=== PATIENT | female | born 1985 | race Hispanic/Latino ===

== ENCOUNTER 2022-01-31 01:35 | Day surgery (SDC) | payer OTHER ==
[2022-01-31 02:13] VITALS: BMI 45.9
[2022-01-31] MEDS ORDERED: hydrALAZINE 20 MG/ML VIAL SLOW IVP PRN (02:54)
== END 2022-01-31 04:23 | disposition home or self-care (01) ==
LOC: CSHLD/OP 01:35
PROVIDERS: ATTEND Obstetrics & Gynecology
DX: O36.8130 Decreased fetal movements, third trimester, not applicable or unspecified (principal); O24.419 Gestational diabetes mellitus in pregnancy, unspecified control; O16.3 Unspecified maternal hypertension, third trimester; Z3A.36 36 weeks gestation of pregnancy; Z79.82 Long term (current) use of aspirin; Z79.84 Long term (current) use of oral hypoglycemic drugs; Z79.899 Other long term (current) drug therapy
CPT/HCPCS: 76819; 99283

== ENCOUNTER 2022-02-01 05:30 | Inpatient (IN) | payer OTHER ==
[2022-02-08] MEDS ORDERED: Misoprostol 100 MCG TAB ONE (07:52)
[2022-02-08] MEDS ORDERED: NS w/ Oxytocin 30 units 500 ML ONE (07:52)
[2022-02-08] MEDS ORDERED: Promethazine HCl 25 MG/ML VIAL IM PRN ×2 (07:53→14:03)
[2022-02-08] MEDS ORDERED: Misoprostol 100 MCG TAB VAG SCH (07:53)
[2022-02-08] MEDS ORDERED: NS w/ Oxytocin 30 units 500 ML IV SCH ×2 (07:53)
[2022-02-08] MEDS ORDERED: Ibuprofen 800 MG TAB PO PRN (07:53)
[2022-02-08] MEDS ORDERED: Lidocaine 1% (PF) 30 ML VIAL SC PRN (07:53)
[2022-02-08] MEDS ORDERED: HYDROcodone/Acetaminophen 5/325 mg Tablet PO PRN ×2 (07:53)
[2022-02-08] MEDS ORDERED: hydrALAZINE 20 MG/ML VIAL SLOW IVP PRN (07:53)
[2022-02-08] MEDS ORDERED: Ondansetron PF 4 MG/2 ML Vial IVP PRN ×2 (07:53→14:03)
[2022-02-08 08:03] VITALS: BMI 45.2
[2022-02-08 08:09] LABS: Hemoglobin 11.4 g/dL (12.0-15.5); Mean Corpuscular HGB CONC 33.6 g/dL (32.0-36.0); Mean Corpuscular Hemoglobin 26.8 pg (27.0-33.0); Mean Corpuscular Volume 79.8 fl (81.6-98.3); Mean Platelet Volume 11.7 fl (7.4-10.4); Platelet Count 176 10x3/uL (150-450); RBC Distribution Width 15.4 % (11.5-14.5); Red Blood Cell (RBC) Count 4.25 10x6/uL (3.90-5.03); White Blood Cell (WBC) Count 7.8 10x3/uL (3.5-10.5)
[2022-02-08 08:14] LABS: ALT (SGPT) 12 U/L (8-55); AST (SGOT) 13 U/L (5-34); Alkaline Phosphatase 145 U/L (40-110); Anion Gap 12 mmol/L (10-20); BUN (Urea Nitrogen) 12 mg/dL (7.0-18.7); Bilirubin, Total 0.4 mg/dL (0.2-1.2); Calc. Creatinine Clearance 268 mL/min (70-130); Calcium 8.5 mg/dL (7.8-10.44); Carbon Dioxide 18 mmol/L (22-29); Chloride 107 mmol/L (98-107); Estimated GFR 121; Globulin 3.4 g/dL (2.4-3.5); Glucose 95 mg/dL (70-105); Potassium 3.9 mmol/L (3.5-5.1); Protein, Total 6.4 g/dL (6.0-8.3); Sodium 133 mmol/L (136-145)
[2022-02-08] MEDS: Lactated Ringer's 1,000 ML IV SCH ×2 (08:17→17:39)
[2022-02-08 08:31] LABS: Syphilis Antibody Nonreactive (Nonreactive); Syphilis Antibody Index 0.06 S/CO (<1.00 Non-Reactive)
[2022-02-08 08:33] LABS: HBSAg Index 0.19 S/CO (0-0.99); Hep B Surf Ag Non-Reactive S/CO (NonReactive)
[2022-02-08 09:17] LABS: SARS-CoV-2 NAA Rapid Test Not Detected (NotDetected)
[2022-02-08] MEDS ORDERED: Fentanyl 2 mcg/Bup 0.1% Cadd 100 ML ONE (13:32)
[2022-02-08] MEDS ORDERED: Acetaminophen 325 MG TAB PO PRN (14:03)
[2022-02-08] MEDS ORDERED: Moisturizing Cream (Eucerin) 113 GM JAR TOP PRN (14:03)
[2022-02-08] MEDS ORDERED: Naloxone HCl 0.4 mg/ml Vial IVP PRN ×2 (14:03)
[2022-02-08] MEDS ORDERED: Lactated Ringer's 500 ML IV PRN (14:03)
[2022-02-08] MEDS ORDERED: diphenhydrAMINE 50 MG/ML VIAL IVP PRN (14:03)
[2022-02-08] MEDS ORDERED: ePHEDrine Sulfate 50 MG/10 ML VIAL SLOW IVP PRN (14:03)
[2022-02-08] MEDS ORDERED: Fentanyl 2 mcg/Bupivacaine 0.1% Cassette 100 ML EPIDURAL SCH (14:15)
[2022-02-08] MEDS ORDERED: Communication Order-Pharmacy FS SCH (14:15)
[2022-02-08] MEDS ORDERED: Bupivacaine 0.25% HCL 30 ML VIAL ONE (20:06)
[2022-02-08] MEDS ORDERED: Methylergonovine 0.2 MG/ML VIAL ONE (20:45)
[2022-02-08] MEDS ORDERED: Carboprost 250 MCG/ML AMP ONE (20:45)
[2022-02-08] MEDS: Misoprostol 200 MCG TAB ONE (21:30)
[2022-02-09] MEDS ORDERED: Milk Of Magnesia 30 ML UDCUP PO PRN (00:01)
[2022-02-09] MEDS ORDERED: Ondansetron PF 4 MG/2 ML Vial IVP PRN (00:01)
[2022-02-09] MEDS ORDERED: HYDROcodone/Acetaminophen 5/325 mg Tablet PO PRN (00:01)
[2022-02-09] MEDS ORDERED: Boostrix 0.5 ML (Tdap) VIAL (>/=7 yrs of age) IM ONE (00:01)
[2022-02-09] MEDS ORDERED: Benzocaine-Menthol 82.5 ML CAN TOP PRN (00:01)
[2022-02-09] MEDS ORDERED: Bisacodyl 10 MG SUPP PR PRN (00:01)
[2022-02-09] MEDS ORDERED: Lanolin Ointment 7 GM TUBE TOP PRN (00:01)
[2022-02-09] MEDS ORDERED: diphenhydrAMINE 25 MG CAP PO PRN (00:01)
[2022-02-09] MEDS ORDERED: hydrALAZINE 20 MG/ML VIAL SLOW IVP PRN (00:01)
[2022-02-09] MEDS ORDERED: Preparation H Ointment 28 GM TUBE PR PRN (00:01)
[2022-02-09] MEDS: Lactated Ringer's 1,000 ML IV SCH (01:10)
[2022-02-09] MEDS: Ibuprofen 800 MG TAB PO SCH ×3 (05:55→21:40)
[2022-02-09] MEDS: Ferrous Sulfate 325 MG TAB PO SCH ×2 (08:11→14:50)
[2022-02-09] MEDS: Docusate 100 MG CAP PO SCH ×2 (08:11→21:41)
[2022-02-09] MEDS: Prenatal Vitamin 1 TAB PO SCH (08:11)
[2022-02-09] MEDS: HYDROcodone/Acetaminophen 5/325 mg Tablet PO PRN (13:40)
[2022-02-10] MEDS: Ibuprofen 800 MG TAB PO SCH ×2 (05:04→13:31)
[2022-02-10 08:44] VITALS: BP 118/59; TEMP 97.8
[2022-02-10] MEDS: Ferrous Sulfate 325 MG TAB PO SCH (10:30)
[2022-02-10] MEDS: Prenatal Vitamin 1 TAB PO SCH (10:31)
[2022-02-10] MEDS: Docusate 100 MG CAP PO SCH (10:31)
[2022-02-10] MEDS: HYDROcodone/Acetaminophen 5/325 mg Tablet PO PRN (12:21)
== END 2022-02-10 14:45 | disposition home or self-care (01) | DRG 806 ==
LOC: CSHLD 02-08 05:41 → CSHPP 02-09 00:01
PROVIDERS: ADMIT Obstetrics & Gynecology; ATTEND Obstetrics & Gynecology
PROC: 10E0XZZ Delivery of Products of Conception, External Approach (ICD-10-PCS; principal; 2022-02-08)
PROC: 0U7C7ZZ Dilation of Cervix, Via Natural or Artificial Opening (ICD-10-PCS; 2022-02-08)
PROC: 10907ZC Drainage of Amniotic Fluid, Therapeutic from Products of Conception, Via Natural or Artificial Opening (ICD-10-PCS; 2022-02-08)
PROC: 10H07YZ Insertion of Other Device into Products of Conception, Via Natural or Artificial Opening (ICD-10-PCS; 2022-02-08)
PROC: 3E033VJ Introduction of Other Hormone into Peripheral Vein, Percutaneous Approach (ICD-10-PCS; 2022-02-08)
DX: O24.420 Gestational diabetes mellitus in childbirth, diet controlled (principal); O10.92 Unspecified pre-existing hypertension complicating childbirth; Z37.0 Single live birth; Z3A.38 38 weeks gestation of pregnancy; Z20.822 Contact with and (suspected) exposure to COVID-19; E66.9 Obesity, unspecified; O99.214 Obesity complicating childbirth; Z79.82 Long term (current) use of aspirin; Z79.84 Long term (current) use of oral hypoglycemic drugs; O66.0 Obstructed labor due to shoulder dystocia
CPT/HCPCS: 36416; 51702; 80053; 85027; 86780; 86850; 86900; 86901; 87340; J0360; J2590; J7120; S0020; U0002

== ENCOUNTER 2022-02-13 19:53 | Emergency (ER) | payer OTHER ==
[2022-02-13 23:03] LABS: #Eosinphils 0.3 10x3/uL (0.0-0.5); #Monocytes 0.6 10x3/uL (0.0-1.1); %Basophils 0.2 % (0.0-2.0); %Eosinophils 5.3 % (0.0-6.0); %Lymphocytes 38.8 % (18.0-47.0); %Monocytes 8.6 % (0.0-10.0); %Neutrophils 46.3 % (40.0-75.0); Hemoglobin 10.6 g/dL (12.0-15.5); Mean Corpuscular HGB CONC 32.7 g/dL (32.0-36.0); Mean Corpuscular Hemoglobin 26.6 pg (27.0-33.0); Mean Corpuscular Volume 81.4 fl (81.6-98.3); Mean Platelet Volume 11.1 fl (7.4-10.4); Platelet Count 206 10x3/uL (150-450); RBC Distribution Width 15.6 % (11.5-14.5); Red Blood Cell (RBC) Count 3.98 10x6/uL (3.90-5.03); White Blood Cell (WBC) Count 6.4 10x3/uL (3.5-10.5)
[2022-02-13 23:19] LABS: ALT (SGPT) 25 U/L (8-55); AST (SGOT) 28 U/L (5-34); Albumin 3.1 g/dL (3.5-5.0); Alkaline Phosphatase 104 U/L (40-110); Anion Gap 11 mmol/L (10-20); BUN (Urea Nitrogen) 15 mg/dL (7.0-18.7); Bilirubin, Total 0.2 mg/dL (0.2-1.2); Calc. Creatinine Clearance 0 mL/min (70-130); Calcium 8.9 mg/dL (7.8-10.44); Carbon Dioxide 22 mmol/L (22-29); Chloride 110 mmol/L (98-107); Estimated GFR 120; Globulin 3.4 g/dL (2.4-3.5); Glucose 100 mg/dL (70-105); Potassium 3.7 mmol/L (3.5-5.1); Protein, Total 6.5 g/dL (6.0-8.3); Sodium 139 mmol/L (136-145)
[2022-02-13 23:20] LABS: SARS-CoV-2 NAA Rapid Test Not Detected (NotDetected)
[2022-02-14] MEDS ORDERED: Ketorolac Tromethamine 30 MG/ML VIAL ONE (00:42)
== END 2022-02-14 01:30 | disposition home or self-care (01) ==
LOC: CSHERS 19:53
DX: R07.89 Other chest pain (principal); R51.9 Headache, unspecified; I10 Essential (primary) hypertension; Z20.822 Contact with and (suspected) exposure to COVID-19
CPT/HCPCS: 71045; 80053; 83880; 84484; 85025; 93005; 96374; J1885

== ENCOUNTER 2022-04-03 19:51 | Emergency (ER) | payer OTHER | END 2022-04-03 20:55 | disposition home or self-care (01) | LOC: CSHERS 19:51 | DX: T81.31XD Disruption of external operation (surgical) wound, not elsewhere classified, subsequent encounter (principal); I10 Essential (primary) hypertension | CPT/HCPCS: 99281 ==

== ENCOUNTER → 2022-04-03 | Day surgery (SDC) | payer OTHER ==
[2022-03-29 13:49] LABS: Hemoglobin 13.2 g/dL (12.0-15.5); Mean Corpuscular HGB CONC 32.7 g/dL (32.0-36.0); Mean Corpuscular Hemoglobin 26.3 pg (27.0-33.0); Mean Corpuscular Volume 80.5 fl (81.6-98.3); Platelet Count 257 10x3/uL (150-450); RBC Distribution Width 14.2 % (11.5-14.5); Red Blood Cell (RBC) Count 5.02 10x6/uL (3.90-5.03); White Blood Cell (WBC) Count 5.8 10x3/uL (3.5-10.5)
[2022-03-29 13:59] LABS: BHCG - Serum Negative (NEGATIVE); Pregs Control Background? CLEAR/WHITE (CLR/WHITE); Pregs Control Bar Appear? YES (CONTROL BAR)
[2022-04-02 09:42] VITALS: BMI 43.1
[~2022-04-03] MED LIST: Bupivacaine PF 0.5% 30 ML VIAL ONE; CEFAZOLIN 2 GM VIAL ONE; CeleCOXIB 100 MG CAP ONE; Dexamethasone 4 mg/ml Vial ONE; EPINEPHrine 1 MG/ML AMP ONE; Famotidine/PF 20 mg/2ml Vial ONE; Fentanyl 100 MCG/2 ML VIAL ONE; Gabapentin 300 MG CAP ONE; HYDROcodone/Acetaminophen 5/325 mg Tablet ONE; Lidocaine 2% 6 ML SYR ONE; Methylene Blue 50 MG/10 ML AMPUL ONE; Metoclopramide HCl 10 MG/2 ML VIAL ONE; Ondansetron PF 4 MG/2 ML Vial ONE; PHENYLEPHRINE-NS 100 MCG/ML 10 ML SYRINGE ONE; PROPOFOL 20 ML ONE; Rocuronium Bromide 10 MG/ML (10ML VIAL) ONE; SUGAMMADEX SODIUM 200 MG/2 ML VIAL ONE
== END ==
LOC: CSHSDC 10:34
PROVIDERS: ATTEND Obstetrics & Gynecology
PROC: 0UT74ZZ Resection of Bilateral Fallopian Tubes, Percutaneous Endoscopic Approach (ICD-10-PCS; principal; 2022-04-03)
DX: N83.8 Other noninflammatory disorders of ovary, fallopian tube and broad ligament (principal); Z15.01 Genetic susceptibility to malignant neoplasm of breast; E66.01 Morbid (severe) obesity due to excess calories; Z68.41 Body mass index [BMI] 40.0-44.9, adult
CPT/HCPCS: 84703; 85027; 86850; 86900; 86901; 88305; J0171; J1100; J2405; J2704; J2765; J3010; Q9968; S0020; S0028